=== PATIENT | female | born 1970 | race Hispanic/Latino ===

== ENCOUNTER → 2022-09-09 | Outpatient (CLI) | payer OTHER | END | disposition home or self-care (01) | LOC: RAH 09:29 | DX: Z12.31 Encounter for screening mammogram for malignant neoplasm of breast (principal) | CPT/HCPCS: 77067 ==

== ENCOUNTER 2025-06-27 04:31 | Emergency (ER) | payer BC, OTHER ==
[~2025-06-27] VITALS: Ht 149.9 cm; Wt 65.8 kg
--- NOTE | 2025-06-27 04:56 | ERN ---
General Chief Complaint: Abdominal Pain Stated Complaint: ABD PAIN, NAUSEA, VOMITING Time Seen by MD: 04:37 Source: patient History of Present Illness Initial Comments 55-year-old female with a past medical history of hyper tension hyperglyceridemia hypercholesterolemia. She comes in with diffuse abdominal pain although it seems to be worse in her bilateral lower abdominal quadrants and especially in her right lower quadrant. It is accompanied by nausea. She says she is trying to go to the bathroom but only passes gas. No change in urination. She is worried that her intestines have pinched off. She is status post laparoscopic cholecystectomy. Allergies: Coded Allergies: No Known Drug Allergies (Unverified Allergy, Unknown, 06/27/25) Past Medical History Past Medical History: Diabetes-Type II Past Surgical History: Cholecystectomy Constitutional: (-) chills, (-) diaphoresis, (-) fever, (-) malaise, (-) weakness, (-) other documentation EENTM: (-) eye pain, (-) blurred vision, (-) tearing, (-) double vision, (-) ear pain, (-) ear discharge, (-) nose pain, (-) nose congestion, (-) throat pain, (-) Throat swelling, (-) mouth pain, (-) tooth pain, (-) mouth swelling, (-) other documentation Respiratory: (-) cough, (-) orthopnea, (-) short of breath, (-) stridor, (-) wheezing, (-) other documentation Cardiovascular: (-) chest pain, (-) edema, (-) palpitations, (-) syncope, (-) dyspnea on exertion, (-) other documentation Gastrointestinal/Abdominal: (+) nausea, (+) vomiting, (+) abdominal pain Genitourinary: (-) vaginal discharge, (-) vaginal bleeding, (-) dysuria, (-) frequency, (-) hematuria, (-) pain, (-) other documentation Musculoskeletal: (-) Neck pain, (-) back pain, (-) Flank Pain, (-) joint pain, (-) joint swelling, (-) muscle pain, (-) muscle stiffness, (-) gout, (-) other documentation Skin: (-) laceration, (-) contusion, (-) abrasion, (-) abscess, (-) rash, (-) change in color, (-) change in hair, (-) change in nails, (-) diaphoresis, (-) dryness, (-) other documentation Physical Exam General Appearance: (+) mild distress Orientation: (+) alert, (+) oriented x 3 Head/Face Trauma: No Eye: bilateral eye normal inspection, bilateral eye PERRL, bilateral eye EOMI Ear, Nose, Throat: (+) hearing grossly normal, (+) normal ENT inspection Neck: (+) normal inspection, (+) supple, (+) full range of motion Respiratory: (+) chest non-tender, (+) lungs clear, (+) well ventilated Heart: (+) regular, (+) no gallop Vascular: (+) no edema, (+) normal peripheral pulse, (+) no JVD Gastrointestinal: (+) distended, (+) tender, (+) abnormal bowel sounds, (+) guarding Results Laboratory and Microbiology Lab and Micro Result Laboratory Tests Test 06/27/25 04:55 06/27/25 05:05 White Blood Count 8.3 K/uL (4.8-10.8) Red Blood Count 5.29 MIL/uL (4.00-5.50) Hemoglobin 15.1 g/dL (12.0-16.0) Hematocrit 45.2 % (36-48) Mean Corpuscular Volume 85.4 fL (79-99) Mean Corpuscular Hemoglobin 28.5 pg (27.0-33.0) Mean Corpuscular Hemoglobin Concent 33.4 g/dL (32.0-36.0) Red Cell Distribution Width 13.2 % (11.0-15.5) Platelet Count 196 K/uL (130-400) Mean Platelet Volume 10.7 fL (7.5-10.5) H Immature Granulocyte % (Auto) 0.2 % (0-1) Neutrophils (%) (Auto) 79.1 % (40.0-77.0) H Lymphocytes (%) (Auto) 13.4 % (21.0-51.0) L Monocytes (%) (Auto) 6.4 % (3.0-13.0) Eosinophils (%) (Auto) 0.8 % (0.0-8.0) Basophils (%) (Auto) 0.1 % (0.0-5.0) Neutrophils # (Auto) 6.5 K/uL (1.8-7.7) Lymphocytes # (Auto) 1.1 K/uL (1.0-4.8) Monocytes # (Auto) 0.5 K/uL (0.1-1.0) Eosinophils # (Auto) 0.07 K/uL (0.00-0.70) Basophils # (Auto) 0.01 K/uL (0.00-0.20) Absolute Immature Granulocyte (auto 0.02 K/uL (0-1) Nucleated Red Blood Cells 0.0 % (0.0-0.19) Sodium Level 140 mmol/L (136-145) Potassium Level 4.2 mmol/L (3.5-5.1) Chloride Level 101 mmol/L (101-111) Carbon Dioxide Level 28 mmol/L (21-32) Blood Urea Nitrogen 12 mg/dL (7-18) Creatinine 0.5 mg/dL (0.5-1.0) Glomerular Filtration Rate Calc 111 mL/min (>90) Random Glucose 165 mg/dL (70-105) H Total Calcium 9.6 mg/dL (8.5-10.1) Total Bilirubin 2.1 mg/dL (0.2-1.0) H Direct Bilirubin 1.5 mg/dL (0.0-0.3) H Aspartate Amino Transf (AST/SGOT) 376 U/L (10-37) H Alanine Aminotransferase (ALT/SGPT) 224 U/L (12-78) H Alkaline Phosphatase 130 U/L (50-136) Troponin I High Sensitivity 8 ng/L (4-50) Total Protein 8.1 g/dL (6.0-8.3) Albumin 4.6 g/dL (3.5-5.0) Lipase 50 U/L (16-77) Urine Color YELLOW (YELLOW) Urine Appearance CLEAR (CLEAR) Urine pH 6.5 (5.0-8.0) Urine Specific [place] 1.046 (1.001-1.031) Urine Protein NEGATIVE mg/dL (NEGATIVE) Urine Glucose (UA) >=1000 mg/dL (NEGATIVE) H Urine Ketones >=80 mg/dL (NEGATIVE) Urine Occult Blood NEGATIVE (NEGATIVE) Urine Nitrate NEGATIVE (NEGATIVE) Urine Bilirubin NEGATIVE mg/dL (NEGATIVE) Urine Urobilinogen 0.2 mg/dL (0.2-1.0) Urine Leukocyte Esterase NEGATIVE [place]/uL Urine RBC None /HPF (0-1) Urine WBC 0-1 /HPF (0-1) Urine Squamous Epithelial Cells RARE /HPF (0-2) Urine Bacteria None /HPF (None Seen) MDM MDM: Differential diagnosis: Small-bowel obstruction, appendicitis, dehydration, gastroenteritis, food poisoning, Rationale: Tests considered and ordered secondary to shared decision making include: Previous outside records reviewed: Old ER visits. Risk of complication and/or morbidity or mortality of patient management: None Medications-Per medication reconciliation Need for hospitalization: Patient does meet criteria for hospitalization. Need for emergency major/minor surgery: No There are no social concerns with this patient. Prescription drug management Prescriptions will include symptomatic care Patient's prior external medical records from other ER visits were reviewed by me as indicated. Prior testing and results from previous visits were reviewed. Prior tests were taken into account with medical decision making and resource utilization, independent historian/historians were used to obtain complete medical history. I independently interpreted the test that were performed, results were reviewed by me and considered findings on radiology if ordered. Patient's CBC is normal except for mild increase in neutrophils. Chemistry panel shows liver failure and elevated transaminitis. Urine is concentrated with a very high level of ketones no signs of infection. KUB shows a large stool burden with impaction in the rectum. Small bowel can not be visualized. Given the transaminitis and liver failure plus patient's symptomology we will get a CT scan with oral and IV contrast. Assumed care from overnight doctor. Patient is a 55-year-old female with the abdominal pain. CT scan was ordered by me. Shows constipation No acute intra- abdominal or pelvic abnormality. Moderate amount of fecal residue in the large bowel loops with fecal impaction in the rectum. No inflammatory bowel wall thickening, diverticulosis, or diverticulitis. A 12 x 11 mm right adrenal nodule is probably an adrenal adenoma. The left adrenal gland appears unremarkable. Discussed all labs and imaging with the patient. No evidence of acute abdominal abnormalities at this time. My exam shows patient's abdomen is soft mildly tender. We will discharge home with strict PCP follow up. She has been given instructions to return if symptoms worsened. ED Course Orders Procedure Category Date Status Time Cbc With Differential LAB 06/27/25 Complete 04:45 Basic Metabolic Panel LAB 06/27/25 Complete 04:45 Hepatic Function Panel LAB 06/27/25 Complete 04:45 Lipase LAB 06/27/25 Complete 04:45 Troponin I High LAB 06/27/25 Complete Sensitivity 04:45 12 Lead Ekg Tracing- EKG 06/27/25 Complete Technical 04:45 Urinalysis Profile LAB 06/27/25 Complete 04:45 Chest 1vw RAD 06/27/25 Resulted 04:45 Iv Insertion CPOE 06/27/25 Transmitted 04:47 Abd 1vw RAD 06/27/25 Resulted 04:57 Ondansetron 4mg Inj PHA 06/27/25 Complete (Zofran 4mg Inj) 05:00 Lactated Ringers PHA 06/27/25 Complete 1000ml (Lactated 04:57 Morphine 4mg Syg PHA 06/27/25 Complete (Morphine 4mg Syg) 05:30 Ct Abdomen/Pelvis CT 06/27/25 Resulted W/Contrast 05:53 Iohexol (Omnipaque) PHA 06/27/25 Complete 06:35 Current Medications Medications (Trade) Dose Ordered Sig/Feliz Route PRN Reason Start Time Stop Time Status Last Admin Dose Admin Iohexol (Omnipaque) 75 ml STK-MED ONCE IV 06/27/25 06:35 06/27/25 06:35 DC Lactated Ringer's (Lactated Ringers 1000ml) 1,000 ml BOLUS STAT IV 06/27/25 04:57 06/27/25 05:00 DC 06/27/25 05:10 Morphine Sulfate (morPHINE 4MG SYG) 2 mg ONCE ONCE IVP 06/27/25 05:30 06/27/25 05:31 DC 06/27/25 05:09 Ondansetron HCl (zoFRAN 4MG INJ) 4 mg ONCE ONCE IVP 06/27/25 05:00 06/27/25 05:01 DC 06/27/25 05:09 Vital Signs Date Time Temp Pulse Resp B/P (MAP) Pulse Ox O2 Delivery O2 Flow Rate FiO2 06/27/25 08:38 98.2 73 20 134/81 99 Room Air* 0 21 06/27/25 06:55 72 15 136/54 98 Room Air* 0 06/27/25 05:50 61 17 141/59 100 Room Air* 0 06/27/25 04:57 97.9 78 16 134/69 100 Room Air* 0 21 06/27/25 04:33 97.9 81 20 129/70 98 Room Air 0 DX & DISP Disposition: Discharge Departure Impression: Primary Impression: Abdominal pain Additional Impressions: Constipation, Elevated liver enzymes Condition: Stable Scripts Polyethylene Glycol 8000 (Polyethylene Glycol) 100 % Powder 500 GM MC DAILY for Constipation for 30 Days, #60 APPL 0 Refills Prov: ZACH LINDQUIST MD 06/27/25 Dicyclomine HCl (Bentyl) 10 Mg Cap 1 CAP PO TID for irritable bowel symptoms for 30 Days, #90 CAP 0 Refills Prov: ZACH LINDQUIST MD 06/27/25 Referrals: BONI THAYER MD (PCP) YAMIL RAYMUNDO MD Jun 27, 2025 04:56 ZACH LINDQUIST MD Jun 27, 2025 09:03
--- NOTE | 2025-06-27 04:57 | NUR ---
PT CARE ASSUMED AT THIS TIME
[2025-06-27 05:03] LABS: IMMATURE GRANULOCYTE ABSOLUTE 0.02 K/uL (0-1); NUCLEATED RED BLOOD CELLS 0.0 % (0.0-0.19); PLATELET COUNT (AUTO) 196 K/uL (130-400); RED BLOOD CELL COUNT(AUTO) 5.29 MIL/uL (4.00-5.50); RED CELL DISTRIBUTION WIDTH 13.2 % (11.0-15.5); WHITE BLOOD COUNT (AUTO) 8.3 K/uL (4.8-10.8)
[2025-06-27] MEDS: LACTATED RINGERS 1000ML IV STA (05:10)
[2025-06-27 05:17] LABS: APPEARANCE,URINE CLEAR (CLEAR); GLUCOSE, URINE (UA) >=1000 mg/dL (NEGATIVE); LEUKOCYTE ESTERASE ,URINE NEGATIVE Leu/uL (NEGATIVE); NITRATE,URINE NEGATIVE (NEGATIVE); OCCULT BLOOD,URINE NEGATIVE (NEGATIVE)
[2025-06-27 05:19] LABS: ADD UA MICROSCOPIC YES
[2025-06-27 05:20] LABS: SQUAMOUS EPITHELIAL CELL,UR RARE /HPF (0-2)
--- NOTE | 2025-06-27 05:21 | EKG ---
[facility] Test Date: 2025-06-27 Test Time: 04:46:49 Pat Name: KAREN AGUILARDepartment: [facility] Room: Gender: F Control Clerk Head: [id number] : 1970 Requested By: YAMIL RAYMUNDO Order Number: [id number] Reading MD: Hayden Burkett Measurements Intervals [place] Rate: 67 P: 21 [place]: 159 QRS: -31 QRSD: 92 T: -10 QT: 421 QTc: 446 Interpretive Statements Sinus rhythm No previous ECG available for comparison Electronically Signed On 06-27-2025 12:04:18 CDT by Hayden Burkett Please click the below link to view image of tracing.
[2025-06-27 05:22] LABS: CREATININE 0.5 mg/dL (0.5-1.0); GLOMERULAR FILTR. RATE CALC 111.0 mL/min (>90); GLUCOSE,RANDOM 165.0 mg/dL (70-105); SODIUM SERUM 140.0 mmol/L (136-145); UREA NITROGEN, BLOOD 12.0 mg/dL (7-18)
[2025-06-27 05:34] LABS: ASPARTATE AMINOTRANSFERASE 376.0 U/L (10-37); TOTAL PROTEIN, SERUM 8.1 g/dL (6.0-8.3)
--- NOTE | 2025-06-27 05:50 | HMCIMG ---
EXAM: CR Abdomen, 1 view CLINICAL HISTORY: Abdominal pain. COMPARISON: None provided. FINDINGS: Nonobstructed nonspecific bowel gas pattern. A component of moderate constipation is present in the colon. No free air is evident. No abnormal calcification. No aggressive appearing osseous lesion. IMPRESSION: No acute process. A component of moderate constipation is present in the colon. /[place]
--- NOTE | 2025-06-27 06:02 | HMCIMG ---
EXAM: CR Chest, 1 view CLINICAL HISTORY: Abdominal pain. COMPARISON: None provided. FINDINGS: The lungs show no infiltrates or other acute findings. Nonspecific vascular crowding around the right infrahilar region. No pleural effusion or pneumothorax. The cardiomediastinal silhouette is within normal limits. No acute osseous abnormality. No free air under the diaphragm. IMPRESSION: No acute cardiopulmonary process is evident. Nonspecific vascular crowding around the right infrahilar region. No free air under the diaphragm. /[place]
[2025-06-27] MEDS ORDERED: IOHEXOL-350 75 ML VIAL IV ONE (06:35)
--- NOTE | 2025-06-27 07:16 | NUR ---
REPORT GIVEN TO SENIA EGAN AT THIS TIME
--- NOTE | 2025-06-27 07:17 | HMCIMG ---
EXAM: CT Abdomen and Pelvis with IV contrast CLINICAL HISTORY: Abd pain. nausea TECHNIQUE: Axial computed tomography images of the abdomen and pelvis with intravenous contrast. CONTRAST: with intravenous contrast. COMPARISON: None provided. FINDINGS: LUNG BASES: Bibasilar subsegmental atelectasis and pleural effusions are seen. LIVER: Unremarkable. GALLBLADDER AND BILE DUCTS: The gallbladder is surgically absent. No biliary ductal dilatation is evident. PANCREAS: Unremarkable. SPLEEN: Unremarkable. ADRENAL GLANDS: A 12 x 11 mm right adrenal nodule is probably an adrenal adenoma. The left adrenal gland appears unremarkable. KIDNEYS, URETERS, AND BLADDER: The kidneys appear within normal limits. There is no hydronephrosis or hydroureter. No urinary calculi are seen. STOMACH AND BOWEL: Unremarkable appearance of the stomach and bowel. No evidence of bowel obstruction. No evidence suggesting enteritis or colitis. There is evidence of constipation in the sigmoid colon. APPENDIX: No evidence of acute appendicitis on CT examination. PERITONEUM: No free fluid. No free air. LYMPH NODES: No lymphadenopathy is evident. REPRODUCTIVE: Unremarkable as visualized. VASCULATURE: No evidence of abdominal aortic aneurysm. Atheromatous calcifications in the abdominal aorta. BONES: No aggressive appearing osseous lesion. No acute osseous pathology evident. Irregularity and sclerosis of the superior endplate of the L4 vertebra. IMPRESSION: No acute intra-abdominal or pelvic abnormality. Moderate amount of fecal residue in the large bowel loops with fecal impaction in the rectum. No inflammatory bowel wall thickening, diverticulosis, or diverticulitis. A 12 x 11 mm right adrenal nodule is probably an adrenal adenoma. The left adrenal gland appears unremarkable. /[place]
[2025-06-27 08:38] VITALS: BP 134/81; PULSE 73; RESP 20; TEMP 98.2; O2SAT 99
[2025-06-27] MEDS ORDERED: DICY10 PO (09:07)
[2025-06-27] MEDS ORDERED: POLY500P31 MC (09:07)
== END 2025-06-27 09:11 | disposition home or self-care (01) ==
LOC: EDH 04:31
DX: R10.84 Generalized abdominal pain (principal); K59.00 Constipation, unspecified; R74.8 Abnormal levels of other serum enzymes; E11.9 Type 2 diabetes mellitus without complications; Z90.49 Acquired absence of other specified parts of digestive tract
CPT/HCPCS: 99284; 74177; 96374; 71045; 96375; 80076; 84484; 80048; 83690; 85025; 81001; 36415; 74018; 93005; J7120; J2405; J2270; Q9967